=== PATIENT | male | born 1945 | race Caucasian/White ===

== ENCOUNTER 2017-06-01 06:28 | Emergency (ER) | payer MEDICARE, OTHER ==
[~2017-06-01] VITALS: Ht 170.2 cm; Wt 97.5 kg
[~2017-06-01 06:28] MED LIST: ACETAMINOP80 MG/0.8 PO; ALBUTEROL1.25 MG/3 INH; ASCORBIC ACID500 MG PO; ASPIRIN EC81 MG PO; ATROVENT HFA12.9 GM INH; CARVEDILOL6.25 MG PO; CITRACAL + D M1 EACH PO; COREG6.25 MG PO; COUMADIN2.5 MG PO; COUMADIN5 MG PO; COUMADIN7.5 MG PO; DAILY MULTIPLE1 EACH PO; FAMOTIDINE40 MG PO; GUAIFENESIN AC473 ML PO; JEVITY 1.5 CA1000 ML PO; LASIX20 MG PO; LEVAQUIN750 MG PO; LEVOFLOXACIN750 MG PO; LISINOPRIL10 MG PO; MULTI VITAMIN1 EACH PO; MULTI-DAY VITA1 EACH PO; NORCO 5-325 TA1 EACH PO; OMEPRAZOLE20 MG PO; PAIN RELIEF500 MG PO; SOTALOL AF80 MG PO; SOTALOL80 MG PO; SPACE CHAMBER1 EACH MC; TRIAMCINOLONE A15 G2 TOP; TYLENOL EXTRA500 MG PO; VITAMIN C500 M1 PO; VITAMIN D1000 UNI1 PO; VITAMIN D31000 UNI1 PO; VITAMIN D5000 UNIT PO; WARFARIN SODIUM5 MG PO
[2017-10-14] MEDS ORDERED: ALBUTEROL2.5 MG/3 M INH (18:17)
[2017-10-14] MEDS ORDERED: CALMOSEPTINE O3.5 GM TOP (18:18)
[2017-10-14] MEDS ORDERED: PERCOCET 5-3251 EACH PO (21:53)
[2017-10-14] MEDS ORDERED: FLOMAX0.4 MG PO (21:53)
== END 2017-06-01 07:09 | disposition home or self-care (01) ==
LOC: ED 06:28
PROC: 0D20XUZ Change Feeding Device in Upper Intestinal Tract, External Approach (ICD-10-PCS; principal; 2017-06-01)
DX: K94.23 Gastrostomy malfunction (principal); R73.09 Other abnormal glucose; Z90.49 Acquired absence of other specified parts of digestive tract; Z95.0 Presence of cardiac pacemaker; Z79.891 Long term (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 opiate analgesic; Z79.899 Other long term (current) drug therapy; Z79.01 Long term (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 anticoagulants
CPT/HCPCS: 43760; 99282

== ENCOUNTER → 2017-10-14 | Emergency (ER) | payer MEDICARE, OTHER ==
[~2017-10-14] VITALS: Ht 170.2 cm; Wt 97.5 kg
[~2017-10-14] MED LIST changes: +ALBUTEROL2.5 MG/3 M INH; +CALMOSEPTINE O3.5 GM TOP; +FLOMAX0.4 MG PO; +PERCOCET 5-3251 EACH PO
== END ==
LOC: ED 17:36
DX: N13.2 Hydronephrosis with renal and ureteral calculous obstruction (principal); Z95.1 Presence of aortocoronary bypass graft; Z95.0 Presence of cardiac pacemaker; Z90.89 Acquired absence of other organs; Z90.49 Acquired absence of other specified parts of digestive tract; Z79.899 Other long term (current) drug therapy; Z79.01 Long term (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 anticoagulants
CPT/HCPCS: 74176; 80053; 81001; 83690; 85025; 85610; 85730; 96374; 96375; 96376; 99284; J1885; J2405

== ENCOUNTER 2018-08-02 08:32 | Emergency (ER) | payer MEDICARE, OTHER ==
[~2018-08-02] VITALS: Ht 170.2 cm; Wt 97.6 kg
[~2018-08-02 08:32] MED LIST changes: +K-TAB ER20 MEQ PO; +LASIX40 MG PO
[2018-08-02] MEDS ORDERED: AUGMENTIN 875-1 EACH PO (09:53)
== END 2018-08-02 10:38 | disposition home or self-care (01) ==
LOC: ED 08:32
DX: Z43.1 Encounter for attention to gastrostomy (principal); L03.311 Cellulitis of abdominal wall; Z79.899 Other long term (current) drug therapy
CPT/HCPCS: 74018; 99284

== ENCOUNTER 2018-08-04 05:41 | Emergency (ER) | payer MEDICARE, OTHER ==
[~2018-08-04] VITALS: Ht 170.2 cm; Wt 97.6 kg
[~2018-08-04 05:41] MED LIST changes: +AUGMENTIN 875-1 EACH PO
--- OUTSIDE RECORDS SUMMARY | 2018-08-04 05:46 | XMS ---
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 Zeferino has no Care Guidelines for this patient. Isha VISIT COUNT (12 MO.) 3 RAMIREZ [facility] TOTAL 3 NOTE: Visits indicate total known visits. ED/C VISIT TRACKING (12 MO.) 08/04/2018 05:41 [facility] [place] TYPE: Emergency COMPLAINT: - FEEDING TUBE FELL OUT 08/02/2018 08:33 [facility] [place] TYPE: Emergency COMPLAINT: - FEEDING TUBE PROBLEM 10/14/2017 17:36 [facility] [place] TYPE: Emergency COMPLAINT: - FLANK PAIN DIAGNOSES: - Unspecified abdominal pain - Presence of cardiac pacemaker - Acquired absence of other specified parts of digestive tract - Acquired absence of other organs - [facility] (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 anticoagulants - Other shelter (current) drug therapy - Presence of aortocoronary bypass graft - Hydronephrosis with renal and ureteral calculous obstruction INPATIENT VISIT TRACKING (12 MO.) No inpatient visits to display in this time frame [id number]
[2018-08-04] MEDS ORDERED: WARFARIN SODIUM5 MG PO (06:07)
[2018-08-04] MEDS ORDERED: K-TAB ER20 MEQ PO (06:08)
[2018-08-04] MEDS ORDERED: LISINOPRIL10 MG PO (06:08)
[2018-08-04] MEDS ORDERED: FUROSEMIDE40 MG PO (06:08)
== END 2018-08-04 06:44 | disposition home or self-care (01) ==
LOC: ED 05:41
DX: K94.23 Gastrostomy malfunction (principal); Z79.899 Other long term (current) drug therapy
CPT/HCPCS: 43760; 99282

== ENCOUNTER 2018-11-07 08:40 | Emergency (ER) | payer MEDICARE, OTHER ==
[~2018-11-07] VITALS: Ht 170.2 cm; Wt 97.6 kg
[~2018-11-07 08:40] MED LIST changes: +FUROSEMIDE20 MG PO; +FUROSEMIDE40 MG PO
[2018-11-07] MEDS ORDERED: ASPIR 8181 MG PO (09:09)
--- NOTE | 2018-11-07 14:22 | EKG ---
[facility] [address] [facility] [place] [address] Signed Ventricular-paced rhythm with occasional premature ventricular complexes Biventricular pacemaker detected Abnormal ECG When compared with ECG of 14-MAR-2017 20:27, premature ventricular complexes are now present Vent. rate has increased BY 4 BPM Confirmed by KATHY HERNANDEZ DO ([id number]) on 11/07/2018 2:22:10 PM Electronically Signed By: KATHY HERNANDEZ DO 11/07/18 1422 PATIENT NAME: RYNE MENDOZA Electrocardiogram DATE OF : 43 PHYSICIAN: KATHY HERNANDEZ DO REPORT #: [id number] REPORT IS CONFIDENTIAL AND NOT TO BE RELEASED WITHOUT AUTHORIZATION
--- OUTSIDE RECORDS SUMMARY | 2018-11-07 14:50 | XMS ---
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 Isha VISIT COUNT (12 MO.) [address] TOTAL 4 NOTE: Visits indicate total known visits. ED/C VISIT TRACKING (12 MO.) [facility]07[facility] DIAGNOSES: - Referral - Hypotension - Weakness 11/07/2018 08:41 [facility] TYPE: Emergency COMPLAINT: - WEAKNESS 08/04/2018 05:41 [facility] [place] TYPE: Emergency COMPLAINT: - FEEDING TUBE FELL OUT DIAGNOSES: - Gastrostomy malfunction - Other senior living (current) drug therapy 08/02/2018 08:[address] [facility] [place] TYPE: Emergency COMPLAINT: - FEEDING TUBE PROBLEM DIAGNOSES: - Encounter for attention to gastrostomy - Other senior living (current) drug therapy - Cellulitis of abdominal wall - Encounter for attention to gastrostomy INPATIENT VISIT TRACKING (12 MO.) No inpatient visits to display in this time frame [id number]
[2018-11-16] MEDS ORDERED: MULTI-VITAMIN1 EACH PO (08:55)
== END 2018-11-07 14:49 | disposition short-term general hospital (02) ==
LOC: ED 08:40
DX: I95.9 Hypotension, unspecified (principal); E86.0 Dehydration; R79.89 Other specified abnormal findings of blood chemistry; I10 Essential (primary) hypertension; Z79.01 Long term (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 anticoagulants; Z79.899 Other long term (current) drug therapy; Z95.0 Presence of cardiac pacemaker
CPT/HCPCS: 36415; 71045; 80053; 81001; 83735; 83880; 84484; 85025; 85610; 85730; 93005; 93010; 96360; 96361; 99285-25; J7030

== ENCOUNTER 2018-12-18 09:45 | Emergency (ER) | payer MEDICARE, OTHER ==
[~2018-12-18] VITALS: Ht 170.2 cm; Wt 97.6 kg
[~2018-12-18 09:45] MED LIST changes: +ASPIR 8181 MG PO; +MULTI-VITAMIN1 EACH PO
[2018-12-18] MEDS ORDERED: LISINOPRIL10 MG PO (10:18)
[2018-12-18] MEDS ORDERED: K-TAB ER20 MEQ PO (10:18)
--- NOTE | 2018-12-19 16:50 | EKG ---
[facility] [address] [facility] [place] [address] Signed Ventricular-paced rhythm with frequent premature ventricular complexes Biventricular pacemaker detected Abnormal ECG When compared with ECG of 07-NOV-2018 09:25, Vent. rate has increased BY 2 BPM Confirmed by KATHY HERNANDEZ DO ([id number]) on 12/19/2018 4:50:07 PM Electronically Signed By: KATHY HERNANDEZ DO 12/19/18 1650 PATIENT NAME: REJIRYNE Electrocardiogram DATE OF : 43 PHYSICIAN: KATHY HERNANDEZ DO REPORT #: [id number] REPORT IS CONFIDENTIAL AND NOT TO BE RELEASED WITHOUT AUTHORIZATION
== END 2018-12-18 13:00 | disposition home or self-care (01) ==
LOC: ED 09:45
DX: I50.9 Heart failure, unspecified (principal); I87.2 Venous insufficiency (chronic) (peripheral); Z95.0 Presence of cardiac pacemaker; Z90.89 Acquired absence of other organs; Z79.01 Long term (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 anticoagulants; Z79.899 Other long term (current) drug therapy
CPT/HCPCS: 71046; 80053; 83880; 84484; 85025; 85610; 93005; 93010; 99284-25

== ENCOUNTER 2019-02-27 10:09 | Emergency (ER) | payer MEDICARE, OTHER ==
[~2019-02-27] VITALS: Ht 170.2 cm; Wt 97.6 kg
[~2019-02-27 10:09] MED LIST changes: +KETOCONAZOLE15 GM TOP
[2019-02-27] MEDS ORDERED: ALBUTEROL2.5 MG/0.5 INH (10:23)
== END 2019-02-27 11:37 | disposition home or self-care (01) ==
LOC: ED 10:09
DX: K94.23 Gastrostomy malfunction (principal); Z95.0 Presence of cardiac pacemaker; Z90.49 Acquired absence of other specified parts of digestive tract; Z79.01 Long term (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 anticoagulants; Z79.899 Other long term (current) drug therapy
CPT/HCPCS: 74018; 99283-25

== ENCOUNTER 2019-03-24 10:06 | Inpatient (IN) | payer MEDICARE, OTHER ==
[~2019-03-24] VITALS: Ht 170.2 cm; Wt 84.9 kg
[~2019-03-24 10:06] MED LIST changes: +ALBUTEROL2.5 MG/0.5 INH
--- OUTSIDE RECORDS SUMMARY | 2019-03-24 10:08 | XMS ---
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 Isha VISIT COUNT (12 MO.) [address] TOTAL 7 NOTE: Visits indicate total known visits. 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 TYPE: Emergency DIAGNOSES: - Referral - Hypotension, unspecified - Dehydration - Hypotension - Weakness 11/07/2018 08:41 [facility] TYPE: Emergency COMPLAINT: - WEAKNESS DIAGNOSES: - Other specified abnormal findings of blood chemistry - Essential (primary) hypertension - Weakness - Presence of cardiac pacemaker - Hypotension, unspecified - Dehydration - Other skilled nursing (current) drug therapy - retirement (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 anticoagulants 08/04/2018 05:41 [facility] [place] TYPE: Emergency COMPLAINT: - FEEDING TUBE FELL OUT DIAGNOSES: - Gastrostomy malfunction - Other skilled nursing (current) drug therapy 08/02/2018 08:33 [facility] [place] TYPE: Emergency COMPLAINT: - FEEDING TUBE PROBLEM DIAGNOSES: - Encounter for attention to gastrostomy - Other skilled nursing (current) drug therapy - Cellulitis of abdominal wall - Encounter for attention to gastrostomy INPATIENT VISIT TRACKING (12 MO.) No inpatient visits to display in this time frame [id number]
[2019-03-24] MEDS ORDERED: LASIX40 MG PO ×2 (16:37)
[2019-03-24] MEDS ORDERED: POTASSIUM CHLO20 ME2 PO (16:39)
[2019-03-29] MEDS ORDERED: COUMADIN5 MG PO (09:45)
== END 2019-03-28 12:05 | disposition home or self-care (01) | DRG 292 ==
LOC: ED 10:06 → CCU 12:29 → MS 03-27 11:25
PROVIDERS: ADMIT Internal Medicine
DX: I50.23 Acute on chronic systolic (congestive) heart failure (principal); L97.909 Non-pressure chronic ulcer of unspecified part of unspecified lower leg with unspecified severity; I50.31 Acute diastolic (congestive) heart failure; I51.7 Cardiomegaly; I08.1 Rheumatic disorders of both mitral and tricuspid valves; G71.11 Myotonic muscular dystrophy; I10 Essential (primary) hypertension; I48.2 Chronic atrial fibrillation; R13.12 Dysphagia, oropharyngeal phase; K21.9 Gastro-esophageal reflux disease without esophagitis; D69.6 Thrombocytopenia, unspecified; K76.1 Chronic passive congestion of liver; K59.00 Constipation, unspecified; I87.2 Venous insufficiency (chronic) (peripheral); Z66 Do not resuscitate; Z95.0 Presence of cardiac pacemaker; Z93.1 Gastrostomy status; Z79.01 Long term (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 anticoagulants; Z79.899 Other long term (current) drug therapy
CPT/HCPCS: 36415; 51702; 71045; 80048; 80053; 80076; 83735; 83880; 85025; 85610; 94640; 97162; 99285-25; J3490

== ENCOUNTER 2019-04-24 09:28 | Observation (INO) | payer MEDICARE, OTHER ==
[~2019-04-24] VITALS: Ht 170.2 cm; Wt 81.7 kg
[~2019-04-24 09:28] MED LIST changes: +POTASSIUM CHLO20 ME2 PO; +ZESTRIL5 MG PO
--- OUTSIDE RECORDS SUMMARY | 2019-04-24 09:32 | XMS ---
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 EVito VISIT COUNT (12 MO.) 1 [place] [address] RAMIREZ Martinez TOTAL 8 NOTE: Visits indicate total known visits. 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 - Presence of cardiac pacemaker 12/18/2018 09:46 [facility] [place] TYPE: Emergency COMPLAINT: - OOZING SORE R LEG DIAGNOSES: - Other half-way (current) drug therapy - Disorder of the skin and subcutaneous tissue, unspecified - Acquired absence of other organs - terminal computer operator (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 anticoagulants - Heart failure, unspecified - Presence of cardiac pacemaker - Venous insufficiency (chronic) (peripheral) 11/07/2018 15:20 [facility] TYPE: Emergency DIAGNOSES: - Referral - Hypotension, unspecified - Dehydration - Hypotension - Weakness 11/07/2018 08:41 [facility] [place] TYPE: Emergency COMPLAINT: - WEAKNESS DIAGNOSES: - Other specified abnormal findings of blood chemistry - Essential (primary) hypertension - Weakness - Presence of cardiac pacemaker - Hypotension, unspecified - Dehydration - Other half-way (current) drug therapy - terminal computer operator (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 anticoagulants 08/04/2018 05:41 [facility] TYPE: Emergency COMPLAINT: - FEEDING TUBE FELL OUT DIAGNOSES: - Gastrostomy malfunction - Other half-way (current) drug therapy 08/02/2018 08:33 [facility] [place] TYPE: Emergency COMPLAINT: - FEEDING TUBE PROBLEM DIAGNOSES: - Encounter for attention to gastrostomy - Other technician terminal and repeater (current) drug therapy - Cellulitis of abdominal wall - Encounter for attention to gastrostomy INPATIENT VISIT TRACKING (12 MO.) 03/24/2019 12:29 [facility] [place] TYPE: Medical Surgical COMPLAINT: - DECOMPENSATED CHF DIAGNOSES: - Dysphagia, oropharyngeal phase - Cardiomegaly - Thrombocytopenia, unspecified - Non-pressure chronic ulcer of unspecified part of unspecified lower leg with unspecified severity - Venous insufficiency (chronic) (peripheral) - Acute diastolic (congestive) heart failure - Chronic atrial fibrillation - Acute on chronic systolic (congestive) heart failure - Do not resuscitate - Constipation, unspecified - Presence of cardiac pacemaker - Myotonic muscular dystrophy - Essential (primary) hypertension - Gastro-esophageal reflux disease without esophagitis - Chronic passive congestion of liver - Gastrostomy status - Heart failure, unspecified - Other half-way (current) drug therapy - terminal computer operator (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 anticoagulants - Rheumatic disorders of both mitral and tricuspid valves [id number]
--- NOTE | 2019-04-24 13:52 | NUR ---
1340: PT ARRIVED TO MED-SURG VIA STRECHER. PT ORIENTED TO THE ROOM, HE DENIES ANY CHEST PAIN AND STATES HE SOB "ALL THE TIME", WHICH HAS BEEN GOING ON FOR A LONG TIME. VITAL SIGNS STABLE.
--- NOTE | 2019-04-24 15:05 | NUR ---
PT RESTING IN HIS BED AND HE DENIES ANY PAIN AT THIS TIME. FEET ELEVATED DUE TO HIS LOWER LEG EDEMA.
--- NOTE | 2019-04-24 15:08 | EKG ---
[facility] [address] [place] [address] Signed Ventricular-paced rhythm Biventricular pacemaker detected Abnormal ECG When compared with ECG of 18-DEC-2018 10:14, premature ventricular complexes are no longer present Vent. rate has decreased BY 8 BPM Confirmed by SHERWIN LEDEZMA MD ([id number]) on 04/24/2019 3:08:35 PM Electronically Signed By: SHERWIN LEDEZMA MD 04/24/19 1508 PATIENT NAME: RYNE MENDOZA Electrocardiogram DATE OF : 43 PHYSICIAN: SHERWIN LEDEZMA MD REPORT #: [id number] REPORT IS CONFIDENTIAL AND NOT TO BE RELEASED WITHOUT AUTHORIZATION
--- NOTE | 2019-04-24 16:43 | NUR ---
PT'S FACE IS VERY FLUSHED. THE PT DENIES ANY PROBLEMS AND HIS TEMP IS NORMAL. I CALLED AND NOTIFIED DR LEDEZMA PRIOR TO GIVING HIM ANY ADDITIONAL MEDICATIONS. DR LEDEZMA STATES EVERYTHING HE HAS ORDERED IS OLD MEDICATIONS FOR THE PT AND TO GIVE HIM HIS ORDERED MEDICATIONS.
--- NOTE | 2019-04-24 16:45 | NUR ---
PT'S AT THE BEDSIDE. PT GIVEN HIS MEDICATIONS ORDERED AND HIS G-TUBE FLUSHED ORDERED.
--- NOTE | 2019-04-24 17:19 | NUR ---
Pt feed through his g-tube as ordered and than flushed with 100ml of water. Pt tolerated well. The flushing of his face remains but now appears less red than it did a short while ago. Pt continues to denie any pain or problems related to the flushing of his face.
--- NOTE | 2019-04-24 17:24 | NUR ---
TUBE FEEDING IS JEVITY 1.5 JL WITH FIBER.
--- NOTE | 2019-04-24 17:31 | NUR ---
CHF WRITTEN INFORMATION GIVEN TO THE PT AND DISCUSSED WITH HIM.
--- NOTE | 2019-04-24 18:30 | NUR ---
Pt sleeping at this time.
--- NOTE | 2019-04-24 18:58 | NUR ---
PATIENT CALLED. PATIENT NEEDED HELP USING THE URINAL. CHANGED HIS GOWN. GOT HIM DISH WITH A LID TO PUT HIS HEARING AIDS IN.
--- NOTE | 2019-04-24 19:50 | NUR ---
ANSWERED CALL LIGHT. HELPED PATIENT USE THE URINAL.
--- NOTE | 2019-04-24 22:33 | NUR ---
AWAKENS EASILY, FLUSHED FACE, DRY LIPS, ORAL CARE DONE, FEEDING TUBE PATENT, FLUSHED WITH 50CC AFTER MEDS GIVEN. RED GLENN/SCROTAL AREA, NYSTATING/BARRIER CREAM APPLIED. COOP WITH ASSESSMENT, HIGH ASPIRATION PRECAUTIONS IN PLACE, NPO
--- NOTE | 2019-04-24 23:18 | NUR ---
pt cooperative with assessment, walked hallways up to nsg station and back to room, 1pa/fww, slow gait but steady. Tolerated well, no sob noted. Pt does have chronic poor averall circulation, hands cyanotic nails, skin cool, no SOB Walked up to br, voided, back to bed. Required help getting into bed. tolerated well. Buttocks area red/ pink, not open, blancheable. Scrotal/groin area edematous. Dark red non blancheable area L inner hip area, not open. Legs with poor ircul;ation, chavez colored, dry skin 2+ pitting edema R calf down, dry-scaly skin above ankles, 2+ edema R foot, 1+ L foot, weak-faint but palpable pulses, skin cool to touch. O2 Sats on room air on return to bed was 92-94%, no SOb stated or noted. Continuous to be strictly NPO, high aspiration and fall risk precautions in place. HOB elevated to his comfort at 30o, Call light at bedside, Bed alrm on, 3 rails up for safety. Pt alert and oriented, cooperative with POC and instructions.
--- NOTE | 2019-04-24 23:55 | NUR ---
ANSWERED CALL LIGHT. HELPED PATIENT USE THE URINAL.
--- NOTE | 2019-04-25 01:21 | NUR ---
REPOSITIONED TO R SIDE ON REQUESTS, ON ROOM AIR, ASPIRATION PRECAUTIONS INPLACE. NO C/O PAIN. CALL LIGHT AT BEDSIDE. NPO, BED ALARM ON
--- NOTE | 2019-04-25 03:09 | NUR ---
ANSWERED CALL LIGHT. PATIENT WANTED HIS DENTURES. CLEANED/BRUSHED AND GAVE TO PATIENT.
--- NOTE | 2019-04-25 04:08 | NUR ---
pt awakens easily, using urinal, voiding qs urine. call light at bedside
--- NOTE | 2019-04-25 05:36 | NUR ---
PT CONTINUES TO HAVE FREQUENCY OF URINE, USING URINAL. PT RECEIVED LASIX EARLIER IN SHIFT AND PRIOR TO ADMISSION TO MED SURG FLOOR. WALKED HALLWAYS WITH STAFF, USING FWW TOLERATED WELL. PT EXTREMITIES COOL TO TOUCH, DISTANT PULSES, SATS 98%, HX OF VASCULAR DZ. LEGS REDDISH COLORED, DRY, SCALY SKIN, COOL TO TOUCH WITH DISTANT PEDAL PULSES. RED GLENN AREA, BARRIER CREAM AND NYSTATIN CREAM APPLIED. IS NPO WITH ASPIRATION PRECAUTIONS, HAS PEG TUBE, PATENT. RECEIVED 30 MEQ OF LIQUID K Q4H PER TUBE, TOLERATING WELL. HELPS WITH TURNING. CALL LIHGT AT BEDSIDE. COOPERATIVE. [facility] HAS HEARING AIDS. BED ALARM ON
--- NOTE | 2019-04-25 07:37 | NUR ---
REPORT RECEIVED FROM TRUCK DRIVER HEAVY RN. PT AWAKE IN BED, DENEIS PAIN, REQUESTING MOUTH SWABS AT THIS TIME. THIS NURSE PROVIDED. CALL LIGHT IN REACH. DENIES FURTHER NEEDS.
[2019-04-25] MEDS ORDERED: K-TAB ER20 MEQ PO (08:06)
[2019-04-25] MEDS ORDERED: TORSEMIDE20 MG PO ×2 (08:09→08:13)
--- NOTE | 2019-04-25 08:51 | NUR ---
PATIENT WAS AWAKE NEED ORAL CARE, WE GOT HIS TEETH BRUSHED AND MOUTH WASHED OUT, FACE WASHED , CHAPP STICK FOR HIS LIPS.
--- NOTE | 2019-04-25 09:32 | NUR ---
MEDICATIONS ADMINSITERED. AT BEDSIDE. PT DENIES PAIN. MEDS CRUSHED AND FLUSHED WITH WATER IN G-TUBE. 50CC FLUSHED AFTER. 2 CANS JEVITY VIA G-TUBE GIVEN. PT TOLERATED WELL. 50 CC FLUSHED AFTER FFEDING. ASSESSMENT COMPPLETED. PLAN FOR DISCHARGE AND SHOWER BEFORE.
[2019-04-25] MEDS ORDERED: MULTI VITAMIN1 EACH PO (10:22)
[2019-04-25] MEDS ORDERED: PEPCID40 MG PO (10:22)
--- NOTE | 2019-04-25 14:56 | NUR ---
PT FADING IN AND OUT OF SLEEP I ENTERED HIS RM. HIS RENAE WAS AT BS. SHE EXPECTED HIM TO BE DC'D TODAY. SHE COULD TELL GREAT IMPROVEMENT AND DR LEDEZMA WAS CHANGING A MED THAT SHE FELT WOULD HELP. GAVE ENCOURAGEMENT, WILL FOLLOW NEEDED
== END 2019-04-25 10:55 | disposition home or self-care (01) ==
LOC: ED 09:28 → MS 09:30
PROVIDERS: ADMIT Internal Medicine
DX: I11.0 Hypertensive heart disease with heart failure (principal); I50.33 Acute on chronic diastolic (congestive) heart failure; I48.2 Chronic atrial fibrillation; G71.11 Myotonic muscular dystrophy; R13.12 Dysphagia, oropharyngeal phase; D69.6 Thrombocytopenia, unspecified; K21.9 Gastro-esophageal reflux disease without esophagitis; E80.6 Other disorders of bilirubin metabolism; I08.1 Rheumatic disorders of both mitral and tricuspid valves; Z66 Do not resuscitate; Z79.01 Long term (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 anticoagulants; Z79.899 Other long term (current) drug therapy; Z95.810 Presence of automatic (implantable) cardiac defibrillator; Z93.1 Gastrostomy status
CPT/HCPCS: 36415; 71045; 80048; 80053; 83880; 84484; 85025; 85610; 93005; 93010; 96374; 96376; 99285-25; G0378; J1940